=== PATIENT | female | born 1955 | race Caucasian/White ===

== ENCOUNTER → 2016-08-24 | Outpatient (CLI) | payer BC ==
--- NOTE | 2016-08-24 15:44 | P.HPBAR ---
Bariatric H&P - History & Physicial H&P Date: 08/24/16 History & Physicial: Visit/CC: follow up visit Patient initial contact: Initial weight: 217 kg Initial weight in pounds: 478.40 Height: 5 ft 3.5 in Initial BMI: 83.4 Last weight: Current weight: 90.083 kg Current weight in pounds: 198.60 Current BMI: 34.6 [place] body weight (based on NIH guidelines): 53.297 kg Excess body weight loss: 77.5% The patient is a 61 year-old F who presents for Bariatric Assessment. The patient presents today for bariatric follow-up. She has a known gastric prolapse. She has had troubles with dysphagia and GERD. Her LAP-BAND was emptied in January 2016. She's had chronic troubles with dysphagia and GERD since then. Past Medical History Past Medical History: Hypertension Additional Past Medical History / Comment(s): bilateral hip replacements w/ multiple reattachments, aortic dissection, kidney stones History of Any Multi-Drug Resistant Organisms: None Reported, MRSA Year Discovered:: 2003, [facility] MDRO Source:: from aortic dissection Past Surgical History: Bariatric Surgery, Hysterectomy, Joint Replacement, Orthopedic Surgery Additional Past Surgical History / Comment(s): lap band, Past Anesthesia/Blood Transfusion Reactions: No Reported Reaction Past Psychological History: Depression Smoking Status: Never smoker Past Alcohol Use History: Rare Past Drug Use History: None Reported - Past Family History Mother Family Medical History: Hypertension Additional Family Medical History / Comment(s): had lap band and now removed Father Family Medical History: Cancer Additional Family Medical History / Comment(s): from lung cancer Surgical - Exam Vital Signs Temp Pulse BP 97.9 F 66 192/97 08/24/16 15:24 08/24/16 15:24 08/24/16 15:24 - General well developed, no distress - Eyes PERRL - ENT normal pinna - Respiratory normal expansion - Cardiovascular Rhythm: regular - Abdomen Abdomen: soft, non tender Bariatric Assessment & Plan Plan: History of gastric prolapse. GERD Dysphagia The patient will be scheduled for removal of her LAP-BAND. She will then obtain insurance authorization prior to gastric sleeve surgery. Bariatric Checklist Checklist: Plan: Checklist: EGD: 1. Hiatal hernia: 2. H. Pylori: HgbA1c: Vitamin D: Smoking: Never smoker Primary care physician referral: dr hahn Psychiatry clearance: Cardiology clearance: Sleep study: Diet journal: VTE risk score: VTE risk level: Rehab needs at discharge:
== END | disposition home or self-care (01) ==
CPT/HCPCS: 99211

== ENCOUNTER 2016-09-09 10:16 | Day surgery (SDC) | payer BC ==
[2016-09-03 15:58] VITALS: BMI 34.9
[~2016-09-09 10:16] MED LIST: LACTATED RINGERS 1,000 ML IV SCH; LIDOCAINE 1% 20 ML VIAL (10MG/ML) FOR IV START INTRADERMA PRN
[2016-09-09 10:54] VITALS: RESP 16; TEMP 96.7
--- NOTE | 2016-09-09 11:10 | P.GSHP ---
History of Present Illness H&P Date: 09/09/16 Chief Complaint: GERD, screening colonoscopy 's is a 61-year-old female who presents today for EGD and screening colonoscopy. Patient has had issues with GERD. She has a previously placed LAP -BAND which has been causing her GERD and dysphagia. She is in today for EGD and screening colonoscopy. She's never had a colonoscopy before. - Constitutional Constitutional: Reports as per HPI Past Medical History Past Medical History: Hypertension Additional Past Medical History / Comment(s): aortic dissection, kidney stones, PROLAPSED LAPBAND History of Any Multi-Drug Resistant Organisms: None Reported, MRSA Date of last positivie culture/infection: 2003, [facility] MDRO Source:: from aortic dissection Past Surgical History: Bariatric Surgery, Hysterectomy, Joint Replacement, Orthopedic Surgery Additional Past Surgical History / Comment(s): lap band, BILAT MACKENZIE WITH MULTIPLE REATTACHMENTS, EGD Past Anesthesia/Blood Transfusion Reactions: No Reported Reaction Past Psychological History: Depression Smoking Status: Never smoker Past Alcohol Use History: Rare Past Drug Use History: None Reported - Past Family History Mother Family Medical History: Hypertension Additional Family Medical History / Comment(s): had lap band and now removed Father Family Medical History: Cancer Additional Family Medical History / Comment(s): from lung cancer Medications and Allergies Home Medications Medication Instructions Recorded Confirmed Type DULoxetine HCL [Cymbalta] 30 mg PO DAILY 01/13/16 09/03/16 History Meloxicam 15 mg PO DAILY 01/13/16 09/03/16 History Morphine Sulfate ER [Ms Contin 30 mg PO Q12HR 01/13/16 09/03/16 History 30Mg] Nebivolol HCl [Bystolic] 5 mg PO DAILY 01/13/16 09/03/16 History oxyCODONE-APAP 10-325MG [Percocet 1 tab PO Q6HR PRN 01/13/16 09/03/16 History 10-325 mg] Solifenacin Succinate [Vesicare] 5 mg PO DAILY 09/03/16 09/03/16 History Allergies Allergy/AdvReac Type Severity Reaction Status Date / Time No Known Allergies Allergy Verified 09/09/16 10:41 Surgical - Exam Vital Signs Temp Pulse Resp BP Pulse Ox 96.7 F L 67 16 174/106 94 L 09/09/16 10:52 09/09/16 10:52 09/09/16 10:52 09/09/16 10:52 09/09/16 10:52 - General well developed, no distress - Eyes PERRL - ENT normal pinna - Neck no masses - Respiratory normal expansion - Cardiovascular Rhythm: regular - Abdomen Abdomen: soft, non tender Assessment and Plan Plan: GERD, dysphagia. Patient will undergo EGD. She'll also undergo screening colonoscopy
[2016-09-09] MEDS ORDERED: PROPOFOL 10 MG/ML 20 ML VIAL IV ONE (11:11)
[2016-09-09] MEDS ORDERED: LIDOCAINE 1% INJ 10MG/ML (20 ML MDV) ONE (11:11)
--- NOTE | 2016-09-09 11:35 | P.OP ---
Date of Procedure: 09/09/16 Preoperative Diagnosis: GERD Screening colonoscopy Postoperative Diagnosis: Mild antral gastritis No evidence of inflammation or erosion her LAP-BAND. Mild esophagitis Mild Diverticulosis Procedure(s) Performed: EGD Colonoscopy Anesthesia: MAC Surgeon: Nathen Sam Pathology: other (Antral, esophagus) Condition: stable Disposition: PACU Description of Procedure: The patient's placed on the endoscopy table in the lateral position. She received IV sedation. The gastroscope some placed oropharynx passed into the esophagus and into the stomach. The scope was then passed into the duodenum. The first and second portion of duodenum appeared normal. The scope was then brought back the antrum and a biopsies performed. There is minimal gastritis. The scope was unretroflexed and remainder of the stomach appeared normal. The patient a previous LAP-BAND device and this was without evidence of inflammation or erosion. The distal esophagus. Minimal inflamed a biopsies performed. The proximal esophagus appeared normal. Scope was withdrawn for patient. Next digital rectal exam was performed which revealed no abnormalities. The flexible colonoscope was then placed patient anus and passed throughout the entire colon. The ileocecal valve was visualized. The cecum, ascending and transverse colon appeared normal. In the descending; was mild diverticular changes. Scope was then brought back the rectum and this appeared normal. Scope was withdrawn for patient.
[2016-09-09 11:50] VITALS: BP 179/107; PULSE 65
== END 2016-09-09 12:24 | disposition home or self-care (01) ==
LOC: ORWHC2ENDO 10:16
PROVIDERS: ATTEND Surgery
DX: Z12.11 Encounter for screening for malignant neoplasm of colon (principal); K95.89 Other complications of other bariatric procedure; K21.0 Gastro-esophageal reflux disease with esophagitis; R13.10 Dysphagia, unspecified; K29.50 Unspecified chronic gastritis without bleeding; I10 Essential (primary) hypertension; F32.9 Major depressive disorder, single episode, unspecified; Z79.891 Long term (current) use of opiate analgesic; Z79.899 Other long term (current) drug therapy
CPT/HCPCS: 43239; 88305; 88342; 99153

== ENCOUNTER → 2016-10-12 | Outpatient (CLI) | payer BC ==
[2016-10-12 13:21] VITALS: BP 157/94; PULSE 77; TEMP 99
== END | disposition home or self-care (01) ==
LOC: BARWHC3 12:47
PROVIDERS: ATTEND Surgery
DX: Z01.818 Encounter for other preprocedural examination (principal)
CPT/HCPCS: 99211

== ENCOUNTER → 2016-10-12 | Outpatient (CLI) | payer BC ==
[2016-10-12 14:07] LABS: EKG EKG PERFORMED
[2016-10-12 14:40] LABS: Basophils % (A) 1 %; CH 31.5; CHCM 32.3; Eosinophils # (A) 0.1 k/uL (0-0.7); Eosinophils % (A) 3 %; HCT 41.8 % (34.0-46.0); HDW 2.55; HGB 13.3 gm/dL (11.4-16.0); Luc # (Auto) 0.16; Luc % (Auto) 3; Lymphocytes # (A) 1.2 k/uL (1.0-4.8); Lymphocytes % (A) 23 %; MCH 31.2 pg (25.0-35.0); MCHC 31.9 g/dL (31.0-37.0); MCV 97.9 fL (80.0-100.0); Mean Platelet Volume 7.8; Monocytes # (A) 0.3 k/uL (0-1.0); Monocytes % (A) 6 %; Neutrophils # (A) 3.5 k/uL (1.3-7.7); Neutrophils % (A) 65 %; RBC 4.27 m/uL (3.80-5.40); WBC 5.3 k/uL (3.8-10.6); WBC (Perox) 5.43
[2016-10-12 14:48] LABS: ALT 18 U/L (9-52); AST 17 U/L (14-36); Alkaline Phosphatase 95 U/L (38-126); Anion Gap 10 mmol/L; Blood Urea Nitrogen 12 mg/dL (7-17); Calcium 9.1 mg/dL (8.4-10.2); Carbon Dioxide 30 mmol/L (22-30); Chloride 102 mmol/L (98-107); Glucose 96 mg/dL (74-99); Non-African American GFR(MDRD) >60 (>60 ml/min/1.73 sqM); Potassium 4.5 mmol/L (3.5-5.1); Sodium 142 mmol/L (137-145); Total Bilirubin 0.7 mg/dL (0.2-1.3)
== END | disposition home or self-care (01) ==
LOC: LABPAT 13:49
PROVIDERS: ATTEND Surgery
DX: Z01.810 Encounter for preprocedural cardiovascular examination (principal); Z01.812 Encounter for preprocedural laboratory examination
CPT/HCPCS: 80053; 85025; 93005

== ENCOUNTER 2016-10-14 09:20 | Observation (INO) | payer BC ==
[2016-10-13 08:58] VITALS: BMI 33.7
[~2016-10-14 09:20] MED LIST changes: +DEXAMETHASONE SOD PHOSPHATE 10 MG/ML 1 ML VIAL IV ONE; -LACTATED RINGERS 1,000 ML IV SCH; +ONDANSETRON 4 MG/2 ML VIAL IVP ONE; +SCOPOLAMINE 1.5MG/72HR PATCH TRANSDERM ONE; +ceFAZolin 2 GM in SODIUM CHLORIDE 0.9% 100 ML IVPB ONE
[2016-10-14] MEDS: LACTATED RINGERS 1,000 ML IV SCH ×2 (10:15→12:39)
--- NOTE | 2016-10-14 11:41 | P.GSHP ---
History of Present Illness H&P Date: 10/14/16 Chief Complaint: GERD, dysphagia This a 61-year-old female who presents today for laparoscopic removal of LAP- BAND and port. She's had issues with GERD and dysphagia. She is unable to have her [place] adjusted secondary to her GERD and dysphagia symptoms. - Constitutional Constitutional: Reports as per HPI Past Medical History Past Medical History: Hypertension Additional Past Medical History / Comment(s): aortic dissection, kidney stones, back pain. , PROLAPSED LAPBAND. PT CARES FOR HER SON WHO HAS PARALYSIS. History of Any Multi-Drug Resistant Organisms: MRSA Date of last positivie culture/infection: 2003, [facility] MDRO Source:: from aortic dissection Past Surgical History: Bariatric Surgery, Hysterectomy, Joint Replacement, Orthopedic Surgery Additional Past Surgical History / Comment(s): lap band, BI TOTAL HIPS , EGD, AORTIC DISSECTION ([facility]) Past Anesthesia/Blood Transfusion Reactions: No Reported Reaction Past Psychological History: Depression Smoking Status: Never smoker Past Alcohol Use History: Rare Past Drug Use History: None Reported - Past Family History Mother Family Medical History: Hypertension Additional Family Medical History / Comment(s): had lap band and now removed Father Family Medical History: Cancer Additional Family Medical History / Comment(s): from lung cancer Medications and Allergies Home Medications Medication Instructions Recorded Confirmed Type Meloxicam 15 mg PO DAILY 01/13/16 10/14/16 History Morphine Sulfate ER [Ms Contin 30 mg PO Q6HR PRN 01/13/16 10/14/16 History 30Mg] Nebivolol HCl [Bystolic] 10 mg PO DAILY 01/13/16 10/14/16 History oxyCODONE-APAP 10-325MG [Percocet 1 tab PO Q6HR PRN 01/13/16 10/14/16 History 10-325 mg] Solifenacin Succinate [Vesicare] 5 mg PO DAILY 09/03/16 10/14/16 History DULoxetine HCL [Cymbalta] 120 mg PO DAILY 10/13/16 10/14/16 History Allergies Allergy/AdvReac Type Severity Reaction Status Date / Time No Known Allergies Allergy Verified 10/14/16 09:59 Surgical - Exam Vital Signs Temp Pulse Resp BP Pulse Ox 97.9 F 61 16 94/40 96 10/14/16 10:02 10/14/16 10:02 10/14/16 10:02 10/14/16 10:02 10/14/16 10:02 - General well developed, no distress - Eyes PERRL - ENT normal pinna - Neck no masses - Respiratory normal expansion - Cardiovascular Rhythm: regular - Abdomen Abdomen: soft, non tender Assessment and Plan Plan: GERD, dysphagia. We'll perform laparoscopic removal of LAP-BAND and port.
[2016-10-14] MEDS ORDERED: MIDAZOLAM 2 MG/2 ML VIAL IV ONE (11:43)
[2016-10-14] MEDS ORDERED: HEPARIN SODIUM,PORCINE 5,000 UNIT/ML 1 ML VIAL SQ ONE (11:45)
[2016-10-14] MEDS ORDERED: BUPIVACAIN-EPI 0.25%-1:200,000 30 ML VIAL SQ ONE ×3 (11:53→13:06)
[2016-10-14] MEDS ORDERED: METHYLENE BLUE 15 MG in SODIUM CHLORIDE 0.9% 500 ML IRRIGATION ONE (12:02)
[2016-10-14] MEDS ORDERED: SUCCINYLCHOLINE CHLORIDE 100 MG/5 ML SYR IV ONE (12:39)
[2016-10-14] MEDS ORDERED: KETOROLAC 30 MG/ML 1 ML VIAL ONE (12:39)
[2016-10-14] MEDS ORDERED: LIDOCAINE 1% INJ 10MG/ML (20 ML MDV) ONE (12:39)
[2016-10-14] MEDS ORDERED: GLYCOPYRROLATE 0.2 MG/ML 2 ML VIAL ONE (12:39)
[2016-10-14] MEDS ORDERED: fentaNYL (PF) 50 MCG/ML 2 ML AMP ONE (12:39)
[2016-10-14] MEDS ORDERED: PROPOFOL 10 MG/ML 20 ML VIAL IV ONE (12:39)
[2016-10-14] MEDS ORDERED: hydrALAZINE HCL 20 MG/ML 1 ML VIAL ONE (12:39)
[2016-10-14] MEDS ORDERED: NEOSTIGMINE 1 MG/ML 10 ML VIAL ONE (12:39)
[2016-10-14] MEDS ORDERED: MIDAZOLAM 2 MG/2 ML VIAL ONE (12:39)
[2016-10-14] MEDS ORDERED: ROCURONIUM BROMIDE 10 MG/ML 10 ML VIAL IV ONE (12:39)
[2016-10-14] MEDS ORDERED: LABETALOL 5 MG/ML VIAL MDV ONE (12:39)
[2016-10-14] MEDS ORDERED: LACTATED RINGERS 1,000 ML IV ONE ×2 (13:15→14:15)
[2016-10-14] MEDS ORDERED: HYDROcodone/APAP 5-325MG 1 EACH TAB PO PRN (14:15)
[2016-10-14] MEDS ORDERED: NALOXONE 0.4 MG/ML 1 ML VIAL IV PRN (14:15)
[2016-10-14] MEDS ORDERED: ONDANSETRON 4 MG/2 ML VIAL IVP PRN (14:15)
--- NOTE | 2016-10-14 14:15 | P.OP ---
Date of Procedure: 10/14/16 Preoperative Diagnosis: GERD Dysphagia LAP-BAND prolapse Postoperative Diagnosis: GERD Dysphagia LAP-BAND prolapse Procedure(s) Performed: Laparoscopic lysis of adhesions Laparoscopic removal of LAP-BAND and port Gastrorrhaphy Anesthesia: GIANNA Surgeon: Nathen Sam Estimated Blood Loss (ml): 30 Pathology: none sent Condition: stable Disposition: PACU Description of Procedure: The patient's placed the operative table in the supine position. She received general anesthesia. Her abdomen was prepped and draped usual sterile fashion. A skin incision was made at the LAP-BAND port site and then using blunt and sharp dissection and electrocautery the LAP-BAND port was dissected free from some taste tissues. The connecting tube tube was then cut. Next using a 5 mm blade less trocar under direct visitation the peritoneal cavity is entered. Upon entering the perineal cavity the abdomen was insufflated and then the 5 mm laparoscope was placed back the peritoneal cavity. Next a 5 mm trocar was placed in the right epigastric position and then another 5 mm trocar was placed in the left lateral and right lateral position and then the 5 mm trocar was placed in the left periumbilical position and then the initial 5 mm trocar at the port site was exchanged for a 15 mm trocar. The camera is placed at the port site and then the left lateral liver lobe was retracted. There were adhesions between the stomach and liver and these were lysed using sharp dissection. There were also omental adhesions to the stomach and these were lysed using sharp dissection and left cautery and the Harmonic scissors. The anterior gastric wall was plication was taken down using sharp dissection. Once the anterior gastric wall plication was taken down adhesions to the lateral aspects LAP-BAND were lysed using sharp dissection. The LAP-BAND was then cut and then withdrawn from around stomach. The stomach was insufflated with 500 mL of methylene blue normal saline. There appeared to be evidence of a seromuscular tear in the fundus the stomach this was suture repaired with 2-0 Ethibond suture and secured with a tie knot. There is no evidence of any extravasation of methylene blue. At this point the LAP-BAND device was brought up through the 15 mm trocar site. The abdomen was irrigated. There is no bleeding seen. The trochars withdrawn. The skin was closed interrupted 3-0 Monocryl suture. Dermabond was applied.
[2016-10-14] MEDS: HYDROmorphone 1 MG/ML 1 ML SYRINGE IVP PRN ×6 (14:20→22:19)
--- NOTE | 2016-10-14 21:20 | CONS ---
DATE OF CONSULTATION: REASON FOR CONSULTATION: Advice regarding hypertension and multiple medical issues, requested by Dr. Sam. HISTORY OF PRESENT ILLNESS: This 61-year-old woman with a past medical history of hypertension, aortic dissection, history of kidney stone, history of prolapsed lap band, history of bariatric surgery, was admitted after surgery for dysphagia, GERD and lap band prolapse. The patient underwent laparoscopic lysis of adhesions and laparoscopic removal of lap band and port and gastrorrhaphy by Dr. Sam. Patient is complaining of some abdominal pain postoperatively; otherwise, there is no history of any fever, rigor or chills. No history of any headache, loss of consciousness, seizures, chest pain, palpitations, shortness of breath, hematochezia or melena at this time. PAST MEDICAL HISTORY: 1. History of hypertension. 2. Aortic dissection. 3. Lap band surgery. 4. Depression. Medications prior to admission include: 1. Oxycodone. 2. Percocet 10 mg q.6 p.r.n. 3. Vesicare 5 mg p.o. daily. 4. Bystolic 10 mg daily. 5. MS Contin 30 mg q.6 p.r.n. 6. Cymbalta 120 mg daily. 7. Meloxicam 15 mg p.o. daily. ALLERGIES: NONE. FAMILY HISTORY: History of hypertension in the family. SOCIAL HISTORY: No history of smoking. Occasional alcohol intake. REVIEW OF SYSTEMS: ENT: No diminished hearing. No diminished vision. CARDIOVASCULAR SYSTEM: No angina, palpitations. RESPIRATORY SYSTEM: No cough, hemoptysis. GI: No nausea, vomiting. : No dysuria. NERVOUS SYSTEM: No numbness or weakness. ALLERGY/IMMUNOLOGY: No asthma, hayfever. MUSCULOSKELETAL: As mentioned earlier. HEMATOLOGY/ONCOLOGY: No history of anemia. ENDOCRINE: No history of diabetes, hypothyroidism. CONSTITUTIONAL: As mentioned earlier. DERMATOLOGY: Negative. RHEUMATOLOGY: Negative. PSYCHIATRY: As mentioned earlier. PHYSICAL EXAMINATION: Patient is alert and oriented x3. Pulse is 73, blood pressure 140/84, respiration 16, temperature 97 degrees, pulse ox 92% on 3 L. HEENT: Conjunctivae normal. NECK: No jugular venous distention. CARDIOVASCULAR SYSTEM: S1, S2 muffled. RESPIRATORY SYSTEM: Breath sounds diminished at the bases. No rhonchi. No crackles. ABDOMEN: Soft, obese, non-tender. Status post surgery. LEGS: No edema. No swelling. NERVOUS SYSTEM: Higher functions as mentioned earlier. Moves all 4 limbs. No focal motor or sensory deficit. LYMPHATICS: No lymph node palpable in neck, axillae or groin. SKIN: No ulcer, rash, bleeding. LABS: CBC, BMP within normal limits. CMP within normal limits. EKG is noted. ASSESSMENT: 1. Status post laparoscopic lysis of adhesions and laparoscopic removal of the lap band and port and gastrorrhaphy for gastroesophageal reflux disease, dysphagia and lap band prolapse. 2. Hypertension. 3. History of aortic dissection. 4. History of nephrolithiasis. 5. History of back pain. 6. Degenerative joint disease. 7. History of methicillin-resistant Staphylococcus aureus. 8. History of bariatric surgery. 9. History of depression. 10. FULL CODE. RECOMMENDATIONS AND DISCUSSION: In this 61-year-old woman who presented with multiple medical problems and complex medical issues, we will monitor the patient closely, continue the current medication, continue with symptomatic treatment. Otherwise, at this time I would recommend resuming the home medications. Incentive spirometry. DVT prophylaxis. We will follow the patient closely with you. Patient may be asked to follow up with primary physician closely after discharge. Thank you, Dr. Sam, for letting us participate in the care of this patient. See orders for further details.
[2016-10-15] MEDS ORDERED: ALPRAZolam 0.25 MG TAB PO STA (00:36)
[2016-10-15] MEDS: HYDROmorphone 1 MG/ML 1 ML SYRINGE IVP PRN ×3 (00:51→06:55)
[2016-10-15 07:52] VITALS: BP 136/81; PULSE 90; RESP 18; TEMP 99.5
[2016-10-15] MEDS ORDERED: NEBIVOLOL 5 MG TAB PO SCH (09:00)
[2016-10-15] MEDS ORDERED: DULoxetine HCL 60 MG CAPSULE.DR PO SCH (09:00)
[2016-10-15] MEDS ORDERED: OXYBUTYNIN XL 5 MG TAB.ER.24 PO SCH (09:00)
[2016-10-15] MEDS ORDERED: oxyCODONE-APAP 10-325MG 1 EACH TAB PO PRN (10:11)
[2016-10-15] MEDS ORDERED: MORPHINE SULFATE ER 30 MG TABLET PO PRN (10:11)
--- NOTE | 2016-10-15 12:02 | P.DS ---
Providers Date of admission: 10/14/16 23:25 Expected date of discharge: 10/15/16 Attending physician: Nathen Sam Consults: 10/14/16 14:15 Consult Physician Routine Consulting Provider: Andrea Blackman Consult Reason/Comments: Medical management Do you want consulting provider notified?: Yes Primary care physician: Stated None Hospital Course: Patient is a 61-year-old white female with medical history significant for GERD and dysphagia secondary to prolapsed LAP-BAND. Patient presented for elective laparoscopic lysis of adhesions; laparoscopic removal of lap band and port; and gastrorrraphy. Patient tolerated procedure well. Patient had an uneventful postoperative course and was deemed stable for discharge to home with follow-up in the outpatient setting. Discharge diagnoses: 1. GERD and dysphagia secondary to lap band prolapse status post laparoscopic lysis of adhesions; laparoscopic removal of lap band and port; and gastrorrhaphy The above impression and plan have been discussed and directed by Dr. Sam. Sabino BARNETT acting as scribe for Dr. Sam. Procedures: Laparoscopic lysis of adhesions Laparoscopic removal of LAP-BAND and port Gastrorrhaphy Patient Condition at Discharge: Good Plan - Discharge Summary Discharge Medication List Morphine Sulfate ER [Ms Contin] 30 mg PO Q6HR PRN 01/13/16 [History] Nebivolol HCl [Bystolic] 10 mg PO DAILY 01/13/16 [History] oxyCODONE-APAP 10-325MG [Percocet 10-325 mg] 1 tab PO Q6HR PRN 01/13/16 [History ] Solifenacin Succinate [Vesicare] 5 mg PO DAILY 09/03/16 [History] DULoxetine HCL [Cymbalta] 120 mg PO DAILY 10/13/16 [History] Follow up Appointment(s)/Referral(s): Nathen Sam MD [STAFF PHYSICIAN] - 1 Week Patient Instructions/Handouts: *Surgery [facility] - Laparoscopy Discharge Instructions Activity/Diet/Wound Care/Special Instructions: No heavy lifting, pushing, or pulling items greater than 10 pounds. Full liquid diet for 48 hours then advance as tolerated. Shower daily, no soaking in bath tubs, pools, or hot tubs. No driving while taking pain medication. Notify surgeon with any signs or symptoms of infection, increased pain, or not tolerating diet. Discharge Disposition: HOME SELF-CARE
[2016-10-15] MEDS: LACTATED RINGERS 1,000 ML IV SCH (14:29)
--- NOTE | 2016-10-15 16:57 | PN ---
DATE OF SERVICE: 10/15/2016 This 61-year-old woman was admitted after laparoscopic lysis of adhesions, laparoscopic removal of lap band and port, is improved significantly. No chest or palpitation. No fever. On exam, alert, oriented x3. Pulse 90, blood pressure 130/81, respirations 18, temperature 99.4, pulse ox 93% on room air. HEENT: Conjunctivae normal. NECK: No jugular venous distention. CARDIOVASCULAR: S1, S2. RESPIRATORY: Breath sounds diminished in the bases. No rhonchi, no crackles. ABDOMEN: Soft, nontender. LEGS: No edema, no swelling. NERVOUS SYSTEM: No focal deficits. LABS: Not available. ASSESSMENT: 1. Status post laparoscopic lysis of adhesions, laparoscopic removal of lap band and port and gastrography for gastroesophageal reflux disease, dysphagia and lap band prolapse. 2. Hypertension. 3. History of aortic dissection. 4. History of nephrolithiasis. 5. History of back pain. 6. History of degenerative joint disease. 7. History of methicillin-resistant Staphylococcus aureus. 8. History of bariatric surgery. 9. History of depression. 10. FULL CODE. RECOMMENDATIONS AND DISCUSSION: I recommend to continue current medications, symptomatic treatment, resume the home medications. Follow with Dr. Thornton in the outpatient setting. The rest of the medications and recommendations per Surgery. Further recommendations to follow.
== END 2016-10-15 14:30 | disposition home or self-care (01) ==
LOC: OR 09:20 → 3OBS 14:19 → OR 23:24 → 3OBS 23:25
PROVIDERS: ADMIT Surgery; ATTEND Surgery
DX: K95.09 Other complications of gastric band procedure (principal); R13.10 Dysphagia, unspecified; K21.9 Gastro-esophageal reflux disease without esophagitis; I10 Essential (primary) hypertension; K66.0 Peritoneal adhesions (postprocedural) (postinfection); M19.90 Unspecified osteoarthritis, unspecified site; F32.9 Major depressive disorder, single episode, unspecified; S36.33XA Laceration of stomach, initial encounter; M54.9 Dorsalgia, unspecified; Z98.84 Bariatric surgery status; Z82.49 Family history of ischemic heart disease and other diseases of the circulatory system; Z79.1 Long term (current) use of non-steroidal anti-inflammatories (NSAID); Z79.899 Other long term (current) drug therapy; Z86.14 Personal history of Methicillin resistant Staphylococcus aureus infection; X58.XXXA Exposure to other specified factors, initial encounter
CPT/HCPCS: 43774; 43840; 49329; G0378 ×2; J2250; J0360; J1644; J1100; J2710; J0690; J2405; J2001; J3010; J1885; J1170 ×2; J0330; J2704; Q9968; 96374; 96376

== ENCOUNTER → 2016-10-26 | Outpatient (CLI) | payer BC ==
--- NOTE | 2016-10-26 15:55 | P.HPBAR ---
Bariatric H&P - History & Physicial H&P Date: 10/26/16 History & Physicial: Visit/CC: Patient initial contact: Initial weight: 217 kg Initial weight in pounds: Height: Initial BMI: Last weight: Current weight: Current weight in pounds: Current BMI: [place] body weight (based on NIH guidelines): Excess body weight loss: The patient is a 61 year-old F who presents for Bariatric Assessment. The patient presents today for postoperative follow-up from removal of her LAP- BAND. The patient wishes to be scheduled for laparoscopic sleeve gastrectomy as soon as possible. Past Medical History Past Medical History: Hypertension Additional Past Medical History / Comment(s): aortic dissection, kidney stones, back pain. , PROLAPSED LAPBAND. PT CARES FOR HER SON WHO HAS PARALYSIS. History of Any Multi-Drug Resistant Organisms: MRSA Year Discovered:: 2003, [facility] MDRO Source:: from aortic dissection Past Surgical History: Bariatric Surgery, Hysterectomy, Joint Replacement, Orthopedic Surgery Additional Past Surgical History / Comment(s): lap band, BI TOTAL HIPS , EGD, AORTIC DISSECTION ([facility]) Past Anesthesia/Blood Transfusion Reactions: No Reported Reaction Past Psychological History: Depression Smoking Status: Unknown if ever smoked Past Alcohol Use History: Rare Past Drug Use History: None Reported - Past Family History Mother Family Medical History: Hypertension Additional Family Medical History / Comment(s): had lap band and now removed Father Family Medical History: Cancer Additional Family Medical History / Comment(s): from lung cancer Surgical - Exam - General well developed, no distress - Eyes PERRL - Abdomen Abdomen: soft, non tender Bariatric Assessment & Plan Plan: The patient's is doing well from removal of her LAP-BAND. She'll be scheduled to see the dietitian for sleeve yesterday diet. We will over the risks and benefits of the sleeve gastrectomy. I discussed with the risk of gastric staple line bleeding, scarring or disruption. Will follow-up in approximately 1 month. We will attempt to get her preauthorized for laparoscopic sleeve gastrectomy. Bariatric Checklist Checklist: Plan: Checklist: EGD: 1. Hiatal hernia: 2. H. Pylori: HgbA1c: Vitamin D: Smoking: Unknown if ever smoked Primary care physician referral: dr hahn Psychiatry clearance: Cardiology clearance: Sleep study: Diet journal: VTE risk score: VTE risk level: Rehab needs at discharge:
[2016-10-26 16:12] VITALS: BP 146/81; PULSE 65; RESP 14; TEMP 99.1; BMI 34.9
== END | disposition home or self-care (01) ==
LOC: BARWHC3 13:59
PROVIDERS: ATTEND Surgery
DX: Z01.818 Encounter for other preprocedural examination (principal)
CPT/HCPCS: 99211

== ENCOUNTER → 2016-11-02 | Outpatient (CLI) | payer BC ==
[2016-11-02 13:31] LABS: Basophils # (A) 0.1 k/uL (0-0.2); Basophils % (A) 1 %; CH 31.3; CHCM 32.4; Eosinophils # (A) 0.3 k/uL (0-0.7); Eosinophils % (A) 7 %; HCT 46.8 % (34.0-46.0); HDW 2.56; HGB 15.1 gm/dL (11.4-16.0); Luc # (Auto) 0.15; Luc % (Auto) 3; Lymphocytes # (A) 1.4 k/uL (1.0-4.8); Lymphocytes % (A) 27 %; MCH 31.3 pg (25.0-35.0); MCHC 32.3 g/dL (31.0-37.0); MCV 97.2 fL (80.0-100.0); Mean Platelet Volume 7.1; Monocytes # (A) 0.3 k/uL (0-1.0); Monocytes % (A) 5 %; Neutrophils % (A) 58 %; RBC 4.82 m/uL (3.80-5.40); RDW 12.9 % (11.5-15.5); WBC 5.2 k/uL (3.8-10.6); WBC (Perox) 5.34
[2016-11-02 13:49] LABS: ALT 19 U/L (9-52); AST 20 U/L (14-36); Alkaline Phosphatase 117 U/L (38-126); Anion Gap 14 mmol/L; Blood Urea Nitrogen 11 mg/dL (7-17); Carbon Dioxide 27 mmol/L (22-30); Chloride 100 mmol/L (98-107); Glucose 110 mg/dL (74-99); Hemoglobin A1C 5.4 % (4.2-6.1); Non-African American GFR(MDRD) >60 (>60 ml/min/1.73 sqM); Potassium 4.2 mmol/L (3.5-5.1); Sodium 141 mmol/L (137-145); Total Bilirubin 1.1 mg/dL (0.2-1.3)
== END | disposition home or self-care (01) ==
LOC: LABPAT 12:42
PROVIDERS: ATTEND Surgery
DX: Z01.812 Encounter for preprocedural laboratory examination (principal)
CPT/HCPCS: 80053; 83036; 85025

== ENCOUNTER → 2016-11-02 | Outpatient (CLI) | payer BC ==
[2016-11-02 16:45] VITALS: BMI 34.2
== END | disposition home or self-care (01) ==
LOC: BARWHC3 08:45
PROVIDERS: ATTEND Surgery
DX: Z71.3 Dietary counseling and surveillance (principal); E66.01 Morbid (severe) obesity due to excess calories; Z68.34 Body mass index [BMI] 34.0-34.9, adult
CPT/HCPCS: 97804

== ENCOUNTER 2016-11-27 07:40 | Inpatient (IN) | payer BC ==
[2016-11-26 11:38] VITALS: BMI 35.7
[~2016-11-27 07:40] MED LIST changes: +METHYLENE BLUE 15 MG in DEXTROSE 5% IN WATER 500 ML IRRIGATION ONE; +MIDAZOLAM 2 MG/2 ML VIAL IV PRN
[2016-11-27] MEDS ORDERED: LACTATED RINGERS 1,000 ML IV ONE ×2 (10:16→12:22)
[2016-11-27] MEDS ORDERED: HEPARIN SODIUM,PORCINE 5,000 UNIT/ML 1 ML VIAL SQ ONE (10:18)
[2016-11-27] MEDS ORDERED: ENOXAPARIN 40 MG/0.4 ML SYRINGE SQ STA (10:28)
[2016-11-27] MEDS ORDERED: ACETAMINOPHEN IV (For NPO) 1,000 MG in SALINE 1 100ML.BAG IVPB STA (10:29)
--- NOTE | 2016-11-27 11:31 | P.GSHP ---
History of Present Illness H&P Date: 11/27/16 Chief Complaint: Morbid obesity BMI 36 This is a 61-year-old female presents today for laparoscopic sleeve gastrectomy. Patient previously LAP-BAND and developed dysphagia secondary gastric prolapse. Her LAP-BAND was removed. Patient presents today for laparoscopic sleeve gastrectomy. Patient aware the risks of surgery including issues of gastric staple line such as bleeding, perforation or obstruction. - Constitutional Constitutional: Reports as per HPI Past Medical History Past Medical History: Hypertension Additional Past Medical History / Comment(s): aortic dissection, kidney stones, back pain. , HX PROLAPSED LAPBAND. . History of Any Multi-Drug Resistant Organisms: MRSA Date of last positivie culture/infection: 2003, [facility] MDRO Source:: from aortic dissection Past Surgical History: Bariatric Surgery, Hysterectomy, Joint Replacement, Orthopedic Surgery Additional Past Surgical History / Comment(s): lap band (removed 10/14/16), BI TOTAL HIPS , EGD, Inferior AORTIC DISSECTION following Lap Band Placement at [facility] in 2003 (??) led to patient being transferred to [facility] by helicopter. Past Anesthesia/Blood Transfusion Reactions: No Reported Reaction Past Psychological History: Depression Additional Psychological History / Comment(s): PT CARES FOR PARALIZED SON Smoking Status: Never smoker Past Alcohol Use History: None Reported Past Drug Use History: None Reported - Past Family History Mother Family Medical History: Hypertension Additional Family Medical History / Comment(s): had lap band and now removed Father Family Medical History: Cancer Additional Family Medical History / Comment(s): from lung cancer Medications and Allergies Home Medications Medication Instructions Recorded Confirmed Type Morphine Sulfate ER [Ms Contin] 30 mg PO Q6HR PRN 01/13/16 11/26/16 History Nebivolol HCl [Bystolic] 10 mg PO DAILY 01/13/16 11/26/16 History oxyCODONE-APAP 10-325MG [Percocet 1 tab PO Q6HR PRN 01/13/16 11/26/16 History 10-325 mg] DULoxetine HCL [Cymbalta] 120 mg PO DAILY 10/13/16 11/26/16 History Tolterodine Tartrate [Detrol LA] 4 mg PO DAILY 11/26/16 11/26/16 History Allergies Allergy/AdvReac Type Severity Reaction Status Date / Time No Known Allergies Allergy Verified 11/26/16 11:25 Surgical - Exam Vital Signs Temp Pulse Resp BP Pulse Ox 98.0 F 78 18 145/91 97 11/27/16 10:01 11/27/16 10:01 11/27/16 10:01 11/27/16 10:01 11/27/16 10:01 - General well developed, no distress - Eyes PERRL - ENT normal pinna - Neck no masses - Respiratory normal expansion - Cardiovascular Rhythm: regular - Abdomen Abdomen: soft, non tender Assessment and Plan Plan: Morbid obesity We'll perform laparoscopic sleeve gastrectomy.
[2016-11-27] MEDS ORDERED: BUPIVACAIN-EPI 0.25%-1:200,000 30 ML VIAL SQ ONE ×2 (11:50)
[2016-11-27] MEDS ORDERED: ROCURONIUM BROMIDE 10 MG/ML 10 ML VIAL IV ONE (11:51)
[2016-11-27] MEDS ORDERED: GLYCOPYRROLATE 0.2 MG/ML 2 ML VIAL ONE (11:51)
[2016-11-27] MEDS ORDERED: MIDAZOLAM 2 MG/2 ML VIAL ONE (11:51)
[2016-11-27] MEDS ORDERED: HYDROmorphone (PF) 1 MG/ML ONE (11:51)
[2016-11-27] MEDS ORDERED: LIDOCAINE 1% INJ 10MG/ML (20 ML MDV) ONE (11:51)
[2016-11-27] MEDS ORDERED: NITROGLYCERIN-D5W PMX 50 MG/250 ML BOTTLE IV ONE (11:51)
[2016-11-27] MEDS ORDERED: LABETALOL 5 MG/ML VIAL MDV ONE (11:51)
[2016-11-27] MEDS ORDERED: NEOSTIGMINE 1 MG/ML 10 ML VIAL ONE (11:51)
[2016-11-27] MEDS ORDERED: ePHEDrine 50 MG/ML 1 ML AMP ONE (11:51)
[2016-11-27] MEDS ORDERED: SUCCINYLCHOLINE CHLORIDE 100 MG/5 ML SYR IV ONE (11:51)
[2016-11-27] MEDS ORDERED: PROPOFOL 10 MG/ML 20 ML VIAL IV ONE (11:51)
[2016-11-27] MEDS ORDERED: NITROGLYCERIN-D5W PMX 50 MG in DEXTROSE/WATER 1 250ML.BAG IV SCH (13:15)
[2016-11-27] MEDS ORDERED: ONDANSETRON 4 MG/2 ML VIAL IVP PRN (13:37)
[2016-11-27] MEDS ORDERED: NALOXONE 0.4 MG/ML 1 ML VIAL IV PRN (13:37)
--- NOTE | 2016-11-27 13:45 | P.OP ---
Date of Procedure: 11/27/16 Preoperative Diagnosis: Morbid obesity Postoperative Diagnosis: Morbid obesity Umbilical hernia Adhesions Procedure(s) Performed: Laparoscopic sleeve gastrectomy Laparoscopic lysis of adhesion Laparoscopic umbilical hernia Anesthesia: GIANNA Surgeon: Nathen Sam Estimated Blood Loss (ml): 100 Pathology: none sent Condition: stable Disposition: PACU Description of Procedure: The patient was placed on the operating room table in the supine position. She received general anesthesia and then was placed in dorsal lithotomy position. Her abdomen was prepped and draped in sterile fashion. The skin incision sites were anesthetized 1% local Xylocaine. And then the skin was incised with an 11 blade in the left lateral position. Using a blade less trocar under direct visualization the peritoneal cavity was entered. The abdomen was insufflated and then a 5 mm laparoscope was placed into the peritoneal cavity. A 5 mm trocar was placed in the right epigastric, and right lateral position. A 15 mm trocar was placed in the supra-umbilical position and another 5 mm trocar was placed in the left lateral position. The left lateral lobe of the liver was retracted. There were extensive adhesions between the stomach and liver. Approximately 20 minutes of operative time used to lyse adhesions. Care was taken to identify the liver and gastric wall interface. The stomach was visualized. The greater curvature of the stomach was then dissected using the Harmonic scissors. The dissection occurred approximately 5 cm from the pylorus to the level of the left kyler. There was no hiatal hernia seen. At this point a 40-Indonesian bougie dilator was placed the oropharynx and passed into the esophagus and into the stomach by the DIRECTOR TRANSLATION. The sleeve gastrectomy was performed by using the powered echelon stapler with a seam guard buttress material. Sequential firings of the stapler were performed. The gastric remnant was then brought out through the 15 mm trocar site. The dilator was withdrawn. And a orogastric tube was replaced into the stomach. The stomach was insufflated with 200 mL of methylene blue normal saline. There was no evidence of extravasation. The abdomen was irrigated there is no bleeding seen. Next the umbilical hernia was repaired. The Raul-Costa device was used to close the umbilical hernia/15 mm trocar with 0 Vicryl. Skin was closed with interrupted 3-0 Monocryl sutures once the trochars withdrawn. Dermabond dressing was applied. Patient was sent to recovery in stable condition.
[2016-11-27] MEDS: HYDROmorphone 1 MG/ML 1 ML SYRINGE IVP PRN ×3 (14:00→17:03)
[2016-11-27] MEDS: LACTATED RINGERS 1,000 ML IV SCH (14:57)
[2016-11-27] MEDS: 0.9% NACL WITH KCL 20 MEQ/L 1,000 ML IV SCH ×2 (15:35→23:29)
[2016-11-27] MEDS: ALBUTEROL NEBULIZED 2.5 MG/3 ML INHALATION SCH ×2 (15:40→19:38)
[2016-11-27] MEDS: AMPICILLIN-SULBACTAM 3 GM in SODIUM CHLORIDE 0.9% 100 ML IVPB SCH ×2 (17:02→23:29)
--- NOTE | 2016-11-27 17:46 | CONS ---
DATE OF CONSULTATION: REASON FOR CONSULTATION: Recommendations regarding her antihypertensive medications. Patient is a 61-year-old admitted for laparoscopic sleeve gastrectomy. I saw her in the immediate postoperative period and did not pass gas yet. Patient is clinically doing well. Denied fever, chills, nausea, vomiting, abdominal pain, diarrhea, or dysuria. REVIEW OF SYSTEMS: CONSTITUTIONAL: No fever, no malaise, no fatigue. HEENT: No recent visual problems or hearing problems. Denied any sore throat. CARDIOVASCULAR: No chest pain, orthopnea, PND, no palpitations, no syncope. PULMONARY: No shortness of breath, no cough, no hemoptysis. GASTROINTESTINAL: Some soreness at the surgical site area. NEUROLOGICAL: No headaches, no weakness, no numbness. HEMATOLOGICAL: Denies any bleeding or petechiae. GENITOURINARY: Denies any burning micturition, frequency, or urgency. MUSCULOSKELETAL/RHEUMATOLOGICAL: Denies any joint pain, swelling, or any muscle pain. ENDOCRINE: Denies any polyuria or polydipsia. The rest of the 14 point review of systems is negative. Home medications include: Oxycodone, acetaminophen, ( ), Nebivolol, morphine and Loxitane. PAST MEDICAL HISTORY: Significant for hypertension, aortic resection in the past, kidney stones, chronic low back pain, bariatric surgery, hysterectomy, joint replacement surgery, depression. FAMILY HISTORY: Significant for hypertension. SOCIAL HISTORY: Denied any smoking, alcohol abuse or any drug abuse. PHYSICAL EXAMINATION: VITAL SIGNS: Temperature 97.2, pulse of 77, respiratory rate of 16, blood pressure is 158/86, saturating at 93% on room air. GENERAL: The patient is alert and oriented x3, not in any acute distress. Well developed, well nourished. HEENT: Pupils are round and equally reacting to light. EOMI. No scleral icterus. No conjunctival pallor. Normocephalic, atraumatic. No pharyngeal erythema. No thyromegaly. CARDIOVASCULAR: S1 and S2 present. No murmurs, rubs, or gallops. PULMONARY: Chest is clear to auscultation, no wheezing or crackles. ABDOMEN: Surgical site area exam defer surgery. Patient does have bowel sounds. No rebound or rigidity. MUSCULOSKELETAL: No joint swelling or deformity. EXTREMITIES: No cyanosis, clubbing, or pedal edema. NEUROLOGICAL: Gross neurological examination did not reveal any focal deficits. SKIN: No rashes. ASSESSMENT AND PLAN: 1. Status post sleeve gastrectomy. Pain management as per primary service. DVT prophylaxis as per primary service. 2. Hypertension. Since she is on beta violeta, her Nebivolol can be continued. No signs or symptoms of infection at this point of time. 3. Depression. Continue Duloxetine. 4. Chronic low back pain. Patient is already on narcotic medications for her chronic low back pain because of which I will go ahead and hold on her home morphine sulfate, oxycodone, and Percocet. Thank for letting me participate in this patient's care. Will continue to follow the patient on an as-needed basis.
[2016-11-27] MEDS: KETOROLAC 30 MG/ML 1 ML VIAL IVP SCH ×2 (18:23→23:29)
[2016-11-28] MEDS: HYDROmorphone 1 MG/ML 1 ML SYRINGE IVP PRN ×5 (04:29→19:24)
[2016-11-28] MEDS: 0.9% NACL WITH KCL 20 MEQ/L 1,000 ML IV SCH (04:30)
[2016-11-28] MEDS: LACTATED RINGERS 1,000 ML IV SCH (05:37)
[2016-11-28] MEDS: KETOROLAC 30 MG/ML 1 ML VIAL IVP SCH ×4 (05:37→23:35)
[2016-11-28 07:35] LABS: Basophils % (A) 0 %; CH 31.5; Eosinophils % (A) 0 %; HCT 32.2 % (34.0-46.0); Luc # (Auto) 0.05; Luc % (Auto) 1; Lymphocytes # (A) 0.8 k/uL (1.0-4.8); Lymphocytes % (A) 10 %; MCH 31.3 pg (25.0-35.0); MCHC 32.6 g/dL (31.0-37.0); MCV 95.9 fL (80.0-100.0); Mean Platelet Volume 6.9; Monocytes # (A) 0.4 k/uL (0-1.0); Monocytes % (A) 5 %; Neutrophils # (A) 7.2 k/uL (1.3-7.7); Neutrophils % (A) 85 %; RBC 3.35 m/uL (3.80-5.40); RDW 12.9 % (11.5-15.5); WBC 8.5 k/uL (3.8-10.6)
[2016-11-28 07:37] LABS: Anion Gap 9 mmol/L; Blood Urea Nitrogen 17 mg/dL (7-17); Calcium 8.7 mg/dL (8.4-10.2); Carbon Dioxide 25 mmol/L (22-30); Chloride 103 mmol/L (98-107); HGB 10.5 gm/dL (11.4-16.0); Magnesium 1.7 mg/dL (1.6-2.3); Non-African American GFR(MDRD) >60 (>60 ml/min/1.73 sqM); Phosphorous 2.9 mg/dL (2.5-4.5); Potassium 4.9 mmol/L (3.5-5.1); Sodium 137 mmol/L (137-145)
[2016-11-28] MEDS: ALBUTEROL NEBULIZED 2.5 MG/3 ML INHALATION SCH ×4 (08:04→20:31)
--- NOTE | 2016-11-28 08:52 | FL ---
EXAMINATION TYPE: FL UGI DATE OF EXAM: 11/28/2016 8:47 AM LIMITED UGI: CLINICAL HISTORY: Morbid Obesity, gastric sleeve surgery yesterday. History of lap band for years re moved several months ago. TECHNIQUE: Limited UGI-esophagram is performed utilizing 20 oz of Omnipaque 350. A total of 41 secon ds of fluoroscopic time was utilized during procedure. COMPARISON: None. FINDINGS: The patient swallowed contrast without difficulty or delay. There is an esophageal dysmoti lity with abnormal secondary and tertiary contractions identified. There is good flow of contrast nicanor ng the diaphragmatic hiatus into proximal stomach and sleeve at proximal site of surgery. There is mi ld delay in flow from distal sleeve into pylorus and duodenal sweep. Patient shows no increased sympt oms on drinking contrast. There is no evidence of contrast extravasation to suggest leak. IMPRESSION: No evidence of leak or significant obstruction status post recent gastric sleeve surgery.
[2016-11-28] MEDS: NEBIVOLOL 5 MG TAB PO SCH (09:40)
[2016-11-28] MEDS: DULoxetine HCL 60 MG CAPSULE.DR PO SCH (09:40)
[2016-11-28] MEDS: ENOXAPARIN 40 MG/0.4 ML SYRINGE SQ SCH ×2 (09:40→19:25)
[2016-11-28] MEDS: OXYBUTYNIN XL 5 MG TAB.ER.24 PO SCH (09:40)
--- NOTE | 2016-11-28 10:53 | P.PN ---
Subjective Principal diagnosis: Morbid obesity The patient underwent laparoscopic sleeve gastrectomy yesterday. She has some complaints of back pain. Her esophagram is within normal limits. Medicine is controlling her hypertension. Objective - Vital Signs Vital signs: Vital Signs Temp 98.5 F 11/28/16 07:30 Pulse 90 11/28/16 08:14 Resp 16 11/28/16 07:30 BP 195/105 11/28/16 08:00 Pulse Ox 95 11/28/16 07:30 Intake & Output 11/27/16 11/28/16 11/28/16 18:59 06:59 18:59 Intake Total 2024 590 Output Total 100 600 Balance 1924 590 -600 Weight 91.626 kg Intake: IV 2024 Oral 590 Output: Urine 600 Estimated Blood Loss 100 Other: Voiding Method Toilet Toilet Toilet # Voids 1 # Bowel Movements 1 - Constitutional General appearance: Present: average body habitus - Gastrointestinal Gastrointestinal Comment(s): Abdomen soft. Incision sites are clean dry and intact. There is minimal abdominal tenderness. - Labs CBC & Chem 7: 11/28/16 06:57 11/28/16 06:57 Labs: Abnormal Lab Results - Last 24 Hours (Table) 11/28/16 Range/Units 06:57 RBC 3.35 L (3.80-5.40) m/uL Hgb 10.5 L D (11.4-16.0) gm/dL Hct 32.2 L (34.0-46.0) % Lymphocytes # 0.8 L (1.0-4.8) k/uL Assessment and Plan Plan: Status post sleeve yesterday. Patient will remain in the hospital today. She' ll start a clear liquid diet. Hopefully the medical service will control her hypertension. We anticipate discharge tomorrow.
[2016-11-28] MEDS ORDERED: hydrALAZINE HCL 25 MG TAB PO SCH ×2 (14:00→22:00)
[2016-11-28] MEDS: oxyCODONE-APAP 10-325MG 1 EACH TAB PO PRN ×2 (14:10→22:55)
[2016-11-28] MEDS ORDERED: hydrALAZINE HCL 25 MG TAB PO PRN (15:22)
[2016-11-28] MEDS ORDERED: LISINOPRIL 10 MG TAB PO STA (16:05)
--- NOTE | 2016-11-28 17:42 | PN ---
Patient's blood pressure is highly elevated. Will recheck the blood pressure again after hydralazine, and if it is still elevated, patient may need to be transferred to [facility] because of her history of type B aortic dissection. I will go ahead and give her additionally Lisinopril 10 mg. REVIEW OF SYSTEMS: CARDIOVASCULAR: No chest pain, no orthopnea, no PND, no palpitations. PULMONARY: Denied any shortness of breath. No cough or hemoptysis. GASTROINTESTINAL: No diarrhea, nausea or vomiting. No abdominal pain. Normoactive bowel sounds. NEUROLOGIC: No headaches, no weakness, no numbness. Medications were reviewed. Patient did move her bowels and pass gas today. Patient's blood pressure is highly elevated because of the pain. PHYSICAL EXAMINATION: VITAL SIGNS: Temperature 99.6, pulse of 98, respiratory rate of 17. Blood pressure is 215/117. Saturating at 93% on room air. GENERAL: The patient is alert and oriented x3, not in any acute distress. Well developed, well nourished. HEENT: Pupils are round and equally reacting to light. EOMI. No scleral icterus. No conjunctival pallor. Normocephalic, atraumatic. No pharyngeal erythema. No thyromegaly. CARDIOVASCULAR: S1 and S2 present. No murmurs, rubs, or gallops. PULMONARY: Chest is clear to auscultation, no wheezing or crackles. ABDOMEN: Patient has abdominal soreness and abdominal surgical ( ) appears to be clean. No rebound or rigidity. Bowel sounds are present. MUSCULOSKELETAL: No joint swelling or deformity. EXTREMITIES: No cyanosis, clubbing, or pedal edema. NEUROLOGICAL: Gross neurological examination did not reveal any focal deficits. SKIN: No rashes. LABORATORY DATA: CBC, CMP were reviewed. ASSESSMENT AND PLAN: 1. Highly elevated blood pressure. Management as mentioned above. Will give her hydralazine ( ) blood pressure concern is patient had type B aortic dissection in the past. Patient does have accelerated hypertension now. If it does not come down, patient will be given additionally Lisinopril. May need to transfer to [facility] for monitoring on monitor technician and close clinical monitoring. 2. Status post sleeve gastrectomy. Postoperatively patient is clinically doing well. 3. Depression. 4. Chronic low back pain. For the rest of the above-mentioned chronic medical problems, we can continue the medications.
[2016-11-29] MEDS: LACTATED RINGERS 1,000 ML IV SCH (00:21)
[2016-11-29] MEDS: HYDROmorphone 1 MG/ML 1 ML SYRINGE IVP PRN ×2 (01:05→09:17)
[2016-11-29] MEDS: oxyCODONE-APAP 10-325MG 1 EACH TAB PO PRN ×2 (04:36→14:02)
[2016-11-29] MEDS: KETOROLAC 30 MG/ML 1 ML VIAL IVP SCH ×2 (05:17→16:23)
[2016-11-29] MEDS: DULoxetine HCL 60 MG CAPSULE.DR PO SCH (08:09)
[2016-11-29] MEDS: OXYBUTYNIN XL 5 MG TAB.ER.24 PO SCH (08:09)
[2016-11-29] MEDS: NEBIVOLOL 5 MG TAB PO SCH (08:09)
[2016-11-29] MEDS: ENOXAPARIN 40 MG/0.4 ML SYRINGE SQ SCH (08:11)
[2016-11-29] MEDS: ALBUTEROL NEBULIZED 2.5 MG/3 ML INHALATION SCH ×3 (08:20→15:09)
[2016-11-29 08:22] VITALS: BP 158/79; RESP 18; TEMP 97.8
[2016-11-29 12:08] VITALS: PULSE 100
[2016-11-29] MEDS ORDERED: LISINOPRIL 20 MG TAB PO SCH (12:15)
--- NOTE | 2016-11-29 13:45 | DS ---
DATE OF ADMISSION: 11/27/2016 DATE OF DISCHARGE: Patient is mildly tachycardic, which actually had gotten better after beta violeta. Patient may have some tachycardia from hydralazine. I am recommending to discharge the patient on 20 mg of lisinopril, which a prescription of which will be provided. Patient is otherwise clinically doing well. REVIEW OF SYSTEMS: CARDIOVASCULAR: No chest pain, no orthopnea, no PND, no palpitations. PULMONARY: Denied any shortness of breath. No cough or hemoptysis. GASTROINTESTINAL: No diarrhea, nausea or vomiting. No abdominal pain. Normoactive bowel sounds. NEUROLOGIC: No headaches, no weakness, no numbness. Medications were reviewed. PHYSICAL EXAMINATION: Temperature 97.8, pulse 100, respiratory rate of 18, blood pressure is 158/79, saturating at 97% on room air. GENERAL: The patient is alert and oriented x3, not in any acute distress. Well developed, well nourished. HEENT: Pupils are round and equally reacting to light. EOMI. No scleral icterus. No conjunctival pallor. Normocephalic, atraumatic. No pharyngeal erythema. No thyromegaly. CARDIOVASCULAR: S1 and S2 present. No murmurs, rubs, or gallops. PULMONARY: Chest is clear to auscultation, no wheezing or crackles. ABDOMEN: Soft, nontender, nondistended, normoactive bowel sounds. No palpable organomegaly. MUSCULOSKELETAL: No joint swelling or deformity. EXTREMITIES: No cyanosis, clubbing, or pedal edema. NEUROLOGICAL: Gross neurological examination did not reveal any focal deficits. SKIN: No rashes. FINAL DIAGNOSES: 1. Accelerated hypertension. Management as mentioned above. 2. Status post gastrectomy. 3. Depression. 4. Chronic low back pain. The patient is okay to be discharged from my perspective and reviewed the discharge medication reconciliation and I am adding lisinopril 20 mg daily. Patient was asked to monitor heart rate and blood pressure. I will call the doctor if heart rate does not come down and if his blood pressure stays high or low. Patient will need to follow up with primary care physician in 3 about 7 days. Instructions were provided to the patient. Patient is okay to discharge from my perspective. I will sign off at this point of time. Patient follows with Dr. Lobo Lennon. Patient was asked to follow up with Dr. Lobo Lennon in about 3 to 7 days.
--- NOTE | 2016-11-29 13:46 | P.DS ---
Providers Date of admission: 11/27/16 09:52 Expected date of discharge: 11/29/16 Attending physician: Nathen Sam Consults: 11/27/16 13:37 Consult Physician Routine Consulting Provider: Colton Elaine Consult Reason/Comments: Medical management Do you want consulting provider notified?: Yes Primary care physician: [facility] Course: This a 61-year-old female who underwent laparoscopic sleeve gastrectomy on 11/27. The patient problems with postoperative hypertension. Please see hospital chart for details. On the day of discharge her vital signs are stable. Her abdomen was soft her incision sites are clean dry tach. Procedures: Laparoscopic sleeve gastrectomy Patient Condition at Discharge: Good Plan - Discharge Summary New Discharge Prescriptions: Docusate [Colace] 100 mg PO BID #20 capsule HYDROcodone/APAP 7.5-325MG [[place] 7.5] 1 each PO Q4H PRN #60 tab PRN Reason: Pain Omeprazole 40 mg PO DAILY #60 capsule. Ondansetron [Zofran] 4 mg PO Q8HR PRN #20 tab PRN Reason: Nausea Discharge Medication List Morphine Sulfate ER [Ms Contin] 30 mg PO Q6HR PRN 01/13/16 [History] Nebivolol HCl [Bystolic] 10 mg PO DAILY 01/13/16 [History] oxyCODONE-APAP 10-325MG [Percocet 10-325 mg] 1 tab PO Q6HR PRN 01/13/16 [History ] DULoxetine HCL [Cymbalta] 120 mg PO DAILY 10/13/16 [History] Tolterodine Tartrate [Detrol LA] 4 mg PO DAILY 11/26/16 [History] Docusate [Colace] 100 mg PO BID #20 capsule 11/29/16 [Rx] HYDROcodone/APAP 7.5-325MG [[place] 7.5] 1 each PO Q4H PRN #60 tab 11/29/16 [Rx] Omeprazole 40 mg PO DAILY #60 capsule. 11/29/16 [Rx] Ondansetron [Zofran] 4 mg PO Q8HR PRN #20 tab 11/29/16 [Rx]
== END 2016-11-29 16:21 | disposition home or self-care (01) | DRG 621 ==
LOC: 2ORWHC 09:52 → 3SUR 14:07
PROVIDERS: ADMIT Surgery; ATTEND Surgery
PROC: 0WQF4ZZ Repair Abdominal Wall, Percutaneous Endoscopic Approach (ICD-10-PCS; 2016-11-27)
PROC: 0DN64ZZ Release Stomach, Percutaneous Endoscopic Approach (ICD-10-PCS; 2016-11-27)
PROC: 0DJ08ZZ Inspection of Upper Intestinal Tract, Via Natural or Artificial Opening Endoscopic (ICD-10-PCS; 2016-11-27)
PROC: 0DB64Z3 Excision of Stomach, Percutaneous Endoscopic Approach, Vertical (ICD-10-PCS; principal; 2016-11-27 10:45)
DX: E66.01 Morbid (severe) obesity due to excess calories (principal); R13.10 Dysphagia, unspecified; I10 Essential (primary) hypertension; F32.9 Major depressive disorder, single episode, unspecified; K66.0 Peritoneal adhesions (postprocedural) (postinfection); M54.5 Low back pain; T46.5X5A Adverse effect of other antihypertensive drugs, initial encounter; R00.0 Tachycardia, unspecified; K42.9 Umbilical hernia without obstruction or gangrene; I97.3 Postprocedural hypertension; G89.29 Other chronic pain; Z87.442 Personal history of urinary calculi; Z82.49 Family history of ischemic heart disease and other diseases of the circulatory system; Z80.1 Family history of malignant neoplasm of trachea, bronchus and lung; Z79.899 Other long term (current) drug therapy; Z68.36 Body mass index [BMI] 36.0-36.9, adult; Z79.891 Long term (current) use of opiate analgesic; Z71.3 Dietary counseling and surveillance; Z63.6 Dependent relative needing care at home; Z86.79 Personal history of other diseases of the circulatory system; Z86.19 Personal history of other infectious and parasitic diseases; Z86.14 Personal history of Methicillin resistant Staphylococcus aureus infection; Z90.710 Acquired absence of both cervix and uterus; Z96.643 Presence of artificial hip joint, bilateral; Z98.84 Bariatric surgery status; Z87.19 Personal history of other diseases of the digestive system
CPT/HCPCS: 74240; 80051; 82310; 82565; 83735; 84100; 84520; 85025; 88307; 94640; 94760

== ENCOUNTER → 2016-12-14 | Outpatient (CLI) | payer BC ==
[2016-12-14 13:51] VITALS: BP 105/70; PULSE 101; RESP 14; TEMP 98.6
--- NOTE | 2016-12-14 14:55 | P.HPBAR ---
Bariatric H&P - History & Physicial H&P Date: 12/14/16 History & Physicial: Visit/CC: sleeve f/u Patient initial contact: Initial weight: 217 kg Initial weight in pounds: 478.40 Height: 4 ft 5.5 in Initial BMI: 117.5 Last weight: Current weight: 84.504 kg Current weight in pounds: 186.30 Current BMI: 45.7 [place] body weight (based on NIH guidelines): 30.617 kg Excess body weight loss: 71.0% The patient is a 61 year-old F who presents for Bariatric Assessment. Patient presents today for sleeve gastrectomy follow-up. She is approximately 2 weeks postoperative. The patient has no change in her chronic back pain. She states she stopped taking her psychiatric meds. She denies any dysphagia or abdominal pain. Past Medical History Past Medical History: Hypertension Additional Past Medical History / Comment(s): aortic dissection, kidney stones, back pain. , HX PROLAPSED LAPBAND. . History of Any Multi-Drug Resistant Organisms: MRSA Year Discovered:: 2003, [facility] MDRO Source:: from aortic dissection Past Surgical History: Bariatric Surgery, Hysterectomy, Joint Replacement, Orthopedic Surgery Additional Past Surgical History / Comment(s): lap band (removed 10/14/16), BI TOTAL HIPS , EGD, Inferior AORTIC DISSECTION following Lap Band Placement at [facility] in 2003 (??) led to patient being transferred to [facility] by helicopter. Past Anesthesia/Blood Transfusion Reactions: No Reported Reaction Past Psychological History: Depression Additional Psychological History / Comment(s): PT CARES FOR PARALIZED SON Smoking Status: Never smoker Past Alcohol Use History: None Reported Past Drug Use History: None Reported - Past Family History Mother Family Medical History: Hypertension Additional Family Medical History / Comment(s): had lap band and now removed Father Family Medical History: Cancer Additional Family Medical History / Comment(s): from lung cancer Surgical - Exam Vital Signs Temp Pulse Resp BP 98.6 F 101 H 14 105/70 12/14/16 13:46 12/14/16 13:46 12/14/16 13:46 12/14/16 13:46 - General well developed, no distress - Eyes PERRL - ENT normal pinna - Neck no masses - Respiratory normal expansion - Cardiovascular Rhythm: regular - Abdomen Abdomen: soft, non tender Bariatric Assessment & Plan Plan: Status post sleeve gastrectomy. Patient was encouraged to resume her psychiatric meds. Her blood pressure had a systolic of 105 today and recommended that she stop her blood pressure medication for the next 2 or 3 days and to check her blood pressure 3-4 times at home each day. She will follow-up in one week. The patient has no symptoms of dysphagia. I've encouraged her to follow the prescribed diet. She will see the dietitian today. Bariatric Checklist Checklist: Plan: Checklist: EGD: 1. Hiatal hernia: 2. H. Pylori: HgbA1c: Vitamin D: Smoking: Never smoker Primary care physician referral: dr hahn Psychiatry clearance: Cardiology clearance: Sleep study: Diet journal: VTE risk score: VTE risk level: Rehab needs at discharge:
[2016-12-14 14:58] VITALS: BMI 32.5
== END | disposition home or self-care (01) ==
LOC: BARWHC3 13:18
PROVIDERS: ATTEND Surgery
DX: Z09 Encounter for follow-up examination after completed treatment for conditions other than malignant neoplasm (principal); I10 Essential (primary) hypertension; E66.01 Morbid (severe) obesity due to excess calories; Z98.84 Bariatric surgery status
CPT/HCPCS: 97803; 99211

== ENCOUNTER → 2017-01-11 | Outpatient (CLI) | payer BC ==
[2017-01-11 16:18] VITALS: BP 136/71; PULSE 64; TEMP 97.8; BMI 43.8
--- NOTE | 2017-01-11 16:55 | P.HPBAR ---
Bariatric H&P - History & Physicial H&P Date: 01/11/17 History & Physicial: Visit/CC: follow up visit Patient initial contact: Initial weight: 217 kg Initial weight in pounds: 478.40 Height: 5 ft 3.5 in Initial BMI: 117.5 Last weight: Current weight: 81.012 kg Current weight in pounds: 178.60 Current BMI: 43.8 [place] body weight (based on NIH guidelines): 30.617 kg Excess body weight loss: 72.9% The patient is a 61 year-old F who presents for Bariatric Assessment. Patient presents for sleeve gastrectomy follow-up. She is doing fairly well. She has minimal complaints of pain. She's had some mild GERD. Past Medical History Past Medical History: Hypertension Additional Past Medical History / Comment(s): aortic dissection, kidney stones, back pain. , HX PROLAPSED LAPBAND. . History of Any Multi-Drug Resistant Organisms: MRSA Year Discovered:: 2003, [facility] MDRO Source:: from aortic dissection Past Surgical History: Bariatric Surgery, Hysterectomy, Joint Replacement, Orthopedic Surgery Additional Past Surgical History / Comment(s): lap band (removed 10/14/16), BI TOTAL HIPS , EGD, Inferior AORTIC DISSECTION following Lap Band Placement at [facility] in 2003 (??) led to patient being transferred to [facility] by helicopter. Past Anesthesia/Blood Transfusion Reactions: No Reported Reaction Past Psychological History: Depression Additional Psychological History / Comment(s): PT CARES FOR PARALIZED SON Smoking Status: Never smoker Past Alcohol Use History: None Reported Past Drug Use History: None Reported - Past Family History Mother Family Medical History: Hypertension Additional Family Medical History / Comment(s): had lap band and now removed Father Family Medical History: Cancer Additional Family Medical History / Comment(s): from lung cancer Surgical - Exam Vital Signs Temp Pulse BP 97.8 F 64 136/71 01/11/17 16:16 01/11/17 16:16 01/11/17 16:16 - General well developed, no distress - Eyes PERRL - ENT normal pinna - Neck no masses - Respiratory normal expansion - Cardiovascular Rhythm: regular - Abdomen Abdomen: soft, non tender Bariatric Assessment & Plan Plan: Status post sleeve gastrectomy. Patient's been quite well. Her GERD symptoms and hypertension are being managed medically. She'll follow-up one month recheck. Bariatric Checklist Checklist: Plan: Checklist: EGD: 1. Hiatal hernia: 2. H. Pylori: HgbA1c: Vitamin D: Smoking: Never smoker Primary care physician referral: dr hahn Psychiatry clearance: Cardiology clearance: Sleep study: Diet journal: VTE risk score: VTE risk level: Rehab needs at discharge:
== END | disposition home or self-care (01) ==
LOC: BARWHC3 15:02
PROVIDERS: ATTEND Surgery
DX: Z48.815 Encounter for surgical aftercare following surgery on the digestive system (principal); K21.9 Gastro-esophageal reflux disease without esophagitis; I10 Essential (primary) hypertension; E66.01 Morbid (severe) obesity due to excess calories; Z98.84 Bariatric surgery status
CPT/HCPCS: 97803; 99211

== ENCOUNTER → 2017-03-15 | Outpatient (CLI) | payer BC ==
[2017-03-15 14:14] VITALS: BMI 28.7
== END | disposition home or self-care (01) ==
LOC: BARWHC3 13:37
PROVIDERS: ATTEND Surgery
DX: D64.9 Anemia, unspecified (principal); N18.3 Chronic kidney disease, stage 3 (moderate); E66.01 Morbid (severe) obesity due to excess calories
CPT/HCPCS: 97803

== ENCOUNTER → 2017-08-23 | Outpatient (CLI) | payer BC ==
[2017-08-23 14:40] VITALS: BP 151/82; PULSE 63; RESP 16; TEMP 98.2
[2017-08-23 15:01] VITALS: BMI 27.6
[2017-08-23 15:47] LABS: HGB 11.7 gm/dL (11.4-16.0); Hypochromasia Slight; MCH 31.5 pg (25.0-35.0); MCHC 31.6 g/dL (31.0-37.0); MCV 99.8 fL (80.0-100.0); Mean Platelet Volume 7.8; Platelet Count 258 k/uL (150-450); RBC 3.71 m/uL (3.80-5.40); WBC 5.4 k/uL (3.8-10.6)
[2017-08-23 15:59] LABS: ALT 26 U/L (9-52); AST 23 U/L (14-36); Albumin 3.9 g/dL (3.5-5.0); Alkaline Phosphatase 70 U/L (38-126); Anion Gap 9 mmol/L; Blood Urea Nitrogen 11 mg/dL (7-17); Calcium 9.3 mg/dL (8.4-10.2); Carbon Dioxide 29 mmol/L (22-30); Chloride 104 mmol/L (98-107); Glucose 87 mg/dL (74-99); Potassium 4.4 mmol/L (3.5-5.1); Sodium 142 mmol/L (137-145); Total Bilirubin 0.4 mg/dL (0.2-1.3); Total Protein 6.5 g/dL (6.3-8.2)
--- NOTE | 2017-08-23 16:20 | P.HPBAR ---
Bariatric H&P - History & Physicial H&P Date: 08/23/17 History & Physicial: Visit/CC: sleeve follow-up Patient initial contact: Initial weight: 217 kg Initial weight in pounds: 478.40 Height: 5 ft 3.5 in Initial BMI: Last weight: Current weight: 71.894 kg Current weight in pounds: Current BMI: 27.6 [place] body weight (based on NIH guidelines): 53.524 kg Excess body weight loss: The patient is a 62 year-old F who presents for Bariatric Assessment. The patient presents today for sleeve gastrectomy follow-up. She continues to lose weight. She's had some issues with hypertension and some mild reflux. Past Medical History Past Medical History: Hypertension Additional Past Medical History / Comment(s): aortic dissection, kidney stones, back pain. , HX PROLAPSED LAPBAND. . History of Any Multi-Drug Resistant Organisms: MRSA Year Discovered:: 2003, [facility] MDRO Source:: from aortic dissection Past Surgical History: Bariatric Surgery, Hysterectomy, Joint Replacement, Orthopedic Surgery Additional Past Surgical History / Comment(s): lap band (removed 10/14/16), BI TOTAL HIPS , EGD, Inferior AORTIC DISSECTION following Lap Band Placement at [facility] in 2003 (??) led to patient being transferred to [facility] by helicopter. Past Anesthesia/Blood Transfusion Reactions: No Reported Reaction Past Psychological History: Depression Additional Psychological History / Comment(s): PT CARES FOR PARALIZED SON Smoking Status: Never smoker Past Alcohol Use History: None Reported Past Drug Use History: None Reported - Past Family History Mother Family Medical History: Hypertension Additional Family Medical History / Comment(s): had lap band and now removed Father Family Medical History: Cancer Additional Family Medical History / Comment(s): from lung cancer Surgical - Exam Vital Signs Temp Pulse Resp BP 98.2 F 63 16 151/82 08/23/17 14:36 08/23/17 14:36 08/23/17 14:36 08/23/17 14:36 - General well developed, no distress - Eyes PERRL - ENT normal pinna - Neck no masses - Respiratory normal expansion - Cardiovascular Rhythm: regular - Abdomen Abdomen: soft, non tender Results - Labs 08/23/17 15:30 Abnormal Lab Results - Last 24 Hours (Table) 01/22/18 Range/Units 15:30 RBC 3.71 L (3.80-5.40) m/uL Bariatric Assessment & Plan Plan: Status post sleeve gastrectomy. Patient's had good weight loss. She's had some issues with hypertension. She will follow-up with her primary care doctor. Her GERD symptoms are minimal and will be observed. She'll follow-up in one month. Bariatric Checklist Checklist: Plan: Checklist: EGD: 1. Hiatal hernia: 2. H. Pylori: HgbA1c: Vitamin D: Smoking: Never smoker Primary care physician referral: dr hahn Psychiatry clearance: Cardiology clearance: Sleep study: Diet journal: VTE risk score: VTE risk level: Rehab needs at discharge:
[2017-08-23 19:11] LABS: Iron Saturation 18.45 (12.00-45.00)
[2017-08-23 19:41] LABS: Vitamin D 25 Hydroxy 16.2 ng/mL (30.0-100.0)
[2017-08-23 20:16] LABS: Folate, Serum 10.8 ng/mL
[2017-08-23 21:53] LABS: Hemoglobin A1C 5.5 % (4.0-6.0)
== END | disposition home or self-care (01) ==
LOC: BARWHC3 14:09
PROVIDERS: ATTEND Surgery
DX: Z48.815 Encounter for surgical aftercare following surgery on the digestive system (principal); K21.9 Gastro-esophageal reflux disease without esophagitis; I10 Essential (primary) hypertension; E66.01 Morbid (severe) obesity due to excess calories; E89.1 Postprocedural hypoinsulinemia; E44.0 Moderate protein-calorie malnutrition; E55.9 Vitamin D deficiency, unspecified; Z98.84 Bariatric surgery status; Z71.3 Dietary counseling and surveillance; Z68.27 Body mass index [BMI] 27.0-27.9, adult
CPT/HCPCS: 36415; 80053; 82306; 82607; 82746; 83036; 83540; 83550; 84134; 84425; 84443; 85027; 97803; 99211

== ENCOUNTER → 2018-11-07 | Outpatient (CLI) | payer BC ==
[2018-11-07 17:02] VITALS: BMI 27.5
--- NOTE | 2018-11-11 11:25 | P.HPBAR ---
Bariatric H&P - History & Physicial H&P Date: 11/07/18 History & Physicial: Visit/CC: Patient initial contact: Initial weight: 217 kg Initial weight in pounds: Height: 5 ft 3.5 in Initial BMI: Last weight: Current weight: 71.668 kg Current weight in pounds: Current BMI: 27.5 [place] body weight (based on NIH guidelines): 53.409 kg Excess body weight loss: The patient is a 63 year-old F who presents for Bariatric Assessment. The patient presents today for sleeve gastrectomy follow-up. She is doing quite well. She's had some minimal GERD. She denies any significant dysphagia. Past Medical History Past Medical History: Hypertension Additional Past Medical History / Comment(s): aortic dissection, kidney stones, back pain. , HX PROLAPSED LAPBAND. . History of Any Multi-Drug Resistant Organisms: MRSA Year Discovered:: 2003, [facility] MDRO Source:: from aortic dissection Past Surgical History: Bariatric Surgery, Hysterectomy, Joint Replacement, Orthopedic Surgery Additional Past Surgical History / Comment(s): lap band (removed 10/14/16), BI TOTAL HIPS , EGD, Inferior AORTIC DISSECTION following Lap Band Placement at [facility] in 2003 (??) led to patient being transferred to [facility] by helicopter. 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 Patient is doing quite well. Her GERD is minimal will be observed. She'll follow-up in 12 weeks. Bariatric Checklist Checklist: Plan: Checklist: EGD: 1. Hiatal hernia: 2. H. Pylori: HgbA1c: Vitamin D: Smoking: Never smoker Primary care physician referral: dr hahn Psychiatry clearance: Cardiology clearance: Sleep study: Diet journal: VTE risk score: VTE risk level: Rehab needs at discharge:
== END ==
LOC: BARWHC3 15:50
PROVIDERS: ATTEND Surgery
DX: E66.01 Morbid (severe) obesity due to excess calories (principal); Z68.27 Body mass index [BMI] 27.0-27.9, adult
CPT/HCPCS: 97803